=== PATIENT | male | born 1990 | race Caucasian/White ===

== ENCOUNTER 2018-08-16 14:15 | Emergency (ER) | payer SELFPAY ==
[2018-08-16] MEDS: HYDROCODONE/APAP (5/325) TAB PO (19:43)
[2018-08-16] MEDS: KETOROLAC 60 MG INJ IM (19:44)
== END 2018-08-16 19:51 | disposition home or self-care (01) ==
LOC: FTE 14:15
DX: S22.31XA Fracture of one rib, right side, initial encounter for closed fracture (principal); H53.8 Other visual disturbances; S09.90XA Unspecified injury of head, initial encounter; R51 Headache; V29.9XXA Motorcycle rider (driver) (passenger) injured in unspecified traffic accident, initial encounter
CPT/HCPCS: 70450; 71100; 96372; 99285-25